=== PATIENT | male | born 1985 | race Caucasian/White ===

== ENCOUNTER 2020-12-18 14:14 | Emergency (ER) | payer MEDICAID ==
[~2020-12-18] VITALS: Ht 180.3 cm; Wt 88.2 kg
[2020-12-18 17:49] VITALS: BP 114/75
== END 2020-12-18 17:54 | disposition home or self-care (01) ==
LOC: ED 16:40
DX: F10.120 Alcohol abuse with intoxication, uncomplicated (principal); Y90.0 Blood alcohol level of less than 20 mg/100 ml